=== PATIENT | female | born 1970 | race African-American/Black ===

== ENCOUNTER 2016-11-22 10:54 | Emergency (ER) | payer OTHER, BC ==
[2016-11-22 11:04] VITALS: BP 143/92
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
== END 2016-11-22 11:29 | disposition home or self-care (01) ==
LOC: ER 10:54
DX: R51 Headache (principal); V87.7XXA Person injured in collision between other specified motor vehicles (traffic), initial encounter
CPT/HCPCS: 99283